=== PATIENT | male | born 2000 | race African-American/Black ===

== ENCOUNTER 2022-09-16 23:43 | Emergency (ER) | payer OTHER ==
[~2022-09-16] VITALS: Ht 175.3 cm; Wt 74.8 kg
[2022-09-17 00:09] VITALS: BP_SYST 123; PULSE 18; RESP 18; TEMP 98.4; O2SAT 100
--- NOTE | 2022-09-17 01:53 | NUR ---
Patient to [facility] for evaluation.
--- NOTE | 2022-09-17 01:54 | NUR ---
PATIENT HERE FOR FOREIGN BODY. PATIENT REPORTS DRINKING A COKE AND THE TOP OF THE COKE CAN TAB FELL IN. DENIES ANY PAIN
--- NOTE | 2022-09-17 03:08 | NUR ---
ER Dr. MAK at [facility] side examining patient.
--- NOTE | 2022-09-17 03:23 | NUR ---
Patient given written and verbal discharge instructions and verbalizes understanding. ER DR MAK discussed with patient the results and treatment provided. Patient in stable condition. ID arm band removed. NO Rx given. Patient educated on pain management and to follow up with PMD. Pain Scale 0/10. Opportunity for questions provided and answered. Medication side effect fact sheet provided.
[2022-09-17 03:24] VITALS: BP_SYST 121; PULSE 18; RESP 18; TEMP 98.4; O2SAT 100
== END 2022-09-17 03:24 | disposition home or self-care (01) ==
LOC: SED 23:43
DX: T18.9XXA Foreign body of alimentary tract, part unspecified, initial encounter (principal); Z79.899 Other long term (current) drug therapy; W45.8XXA Other foreign body or object entering through skin, initial encounter; Y93.89 Activity, other specified; Y92.89 Other specified places as the place of occurrence of the external cause; Y99.8 Other external cause status
CPT/HCPCS: 71046-TC; 99283